=== PATIENT | male | born 1990 | race African-American/Black ===

== ENCOUNTER 2018-04-05 14:29 | Emergency (ER) | payer SELFPAY ==
[~2018-04-05] VITALS: Ht 188 cm; Wt 111.4 kg
[~2018-04-05 14:29] MED LIST: AMOXICILLIN 50500 MG PO; AMOXICILLIN 8751 TAB PO; CORTISPORIN OTI10 ML OT; FIORICET 325 MG1 TA1; FLEXERIL 1010 MG/TAB PO; LORTAB 5/500 501 TAB PO; NAPROSYN500 MG PO; NO HOME MEDICATIONS; NORCO 325 MG-51 TAB PO; NORCO 325 MG-7.1 TAB PO
[2018-04-05 14:33] VITALS: BP 141/101; TEMP 99.5
[2018-04-05 15:13] LABS: COLLECTION METHOD CLEAN CATCH
[2018-04-05 15:21] LABS: PH 7 (5-8); SQUAMOUS EPITHELIAL 0-2 /hpf; URINE APPEARANCE Clear; URINE BACTERIA None Seen /hpf; URINE BILIRUBIN Negative (NEGATIVE); URINE BLOOD Negative (NEGATIVE); URINE COLOR Yellow; URINE GLUCOSE Negative (NEGATIVE); URINE KETONE Negative (NEGATIVE); URINE LEUKOCYTE ESTERASE Negative (NEGATIVE); URINE NITRATE Negative (NEGATIVE); URINE PROTEIN(semi-quant) Negative (NEGATIVE); URINE RBC 0-2 /hpf; URINE UROBILINOGEN Negative (NEGATIVE)
[2018-04-05 16:10] VITALS: PULSE 60
== END 2018-04-05 16:10 | disposition home or self-care (01) ==
LOC: COL.ER 14:29
PROVIDERS: Emergency Medicine
DX: Z11.3 Encounter for screening for infections with a predominantly sexual mode of transmission (principal); F17.210 Nicotine dependence, cigarettes, uncomplicated
CPT/HCPCS: J0696

== ENCOUNTER 2018-12-27 01:53 | Emergency (ER) | payer SELFPAY ==
[~2018-12-27] VITALS: Ht 188 cm; Wt 115.9 kg
[2018-12-27 02:01] VITALS: BP 137/96; PULSE 80; TEMP 99.2
== END 2018-12-27 02:35 | disposition home or self-care (01) ==
LOC: COL.ER 01:53
DX: S60.221A Contusion of right hand, initial encounter (principal); F17.210 Nicotine dependence, cigarettes, uncomplicated; F12.10 Cannabis abuse, uncomplicated; W46.1XXA Contact with contaminated hypodermic needle, initial encounter

== ENCOUNTER 2021-04-11 17:41 | Emergency (ER) | payer SELFPAY ==
[~2021-04-11] VITALS: Ht 188 cm; Wt 110.0 kg
[2021-04-11] MEDS ORDERED: PEN-VEE K500 MG PO (19:17)
[2021-04-11 19:45] VITALS: BP 138/80; PULSE 87; TEMP 98.1
== END 2021-04-11 19:45 | disposition home or self-care (01) ==
LOC: COL.ER 17:41
DX: K03.81 Cracked tooth (principal); F17.210 Nicotine dependence, cigarettes, uncomplicated

== ENCOUNTER 2022-07-21 09:29 | Emergency (ER) | payer SELFPAY ==
[~2022-07-21] VITALS: Ht 188 cm; Wt 118.2 kg
[~2022-07-21 09:29] MED LIST changes: +PEN-VEE K500 MG PO
[2022-07-21 09:39] VITALS: TEMP 98.7
[2022-07-21] MEDS ORDERED: ZITHROMAX Z PA250 MG PO (10:14)
[2022-07-21] MEDS ORDERED: AMOXICILLIN 8751 TAB PO (10:14)
[2022-07-21 10:18] VITALS: BP 133/88; PULSE 76
== END 2022-07-21 10:24 | disposition home or self-care (01) ==
LOC: COL.ER 09:29
DX: J18.9 Pneumonia, unspecified organism (principal); F17.210 Nicotine dependence, cigarettes, uncomplicated; Z20.822 Contact with and (suspected) exposure to COVID-19; Z28.310 Unvaccinated for COVID-19

== ENCOUNTER 2023-03-26 10:14 | Emergency (ER) | payer SELFPAY ==
[~2023-03-26] VITALS: Ht 188 cm; Wt 118.2 kg
[~2023-03-26 10:14] MED LIST changes: +ZITHROMAX Z PA250 MG PO
[2023-03-26 10:21] VITALS: TEMP 99
[2023-03-26 12:40] VITALS: BP 139/91; PULSE 68
== END 2023-03-26 12:40 | disposition home or self-care (01) ==
LOC: COL.ER 10:14
PROVIDERS: Emergency Medicine
DX: Z77.098 Contact with and (suspected) exposure to other hazardous, chiefly nonmedicinal, chemicals (principal); R51.9 Headache, unspecified; R06.02 Shortness of breath; F17.210 Nicotine dependence, cigarettes, uncomplicated; Z28.310 Unvaccinated for COVID-19

== ENCOUNTER 2024-05-05 02:28 | Emergency (ER) | payer SELFPAY ==
[~2024-05-05] VITALS: Ht 182.9 cm; Wt 130.0 kg
[2024-05-05 02:34] VITALS: TEMP 98.8
[2024-05-05] MEDS ORDERED: Ondansetron 4 MG/2 ML VIAL IV ONE (02:45)
[2024-05-05] MEDS ORDERED: LR 1,000 ML IV ONE (02:45)
[2024-05-05 03:07] LABS: BASO % 0.8 % (0.0-2.0); EOS # 0.2 K/mm3 (0.0-0.7); EOS % 3.2 % (0.0-4.0); GRAN # 2.6 K/mm3 (1.4-6.5); GRAN % 49.3 % (42.2-75.2); HEMOGLOBIN 12.9 g/dl (13.5-18.0); LYMPH # 2.1 K/mm3 (1.2-3.4); LYMPH % 39.1 % (20.0-51.0); MEAN CELL VOLUME 82 fl (80.0-100.0); MEAN CORPUSCULAR HEMOGLOBIN 27 pg (27-31); MEAN CORPUSCULAR HGB CONC 33 g/dl (33.0-37.0); MEAN PLATELET VOLUME 10.1 fl (7.4-10.4); MONO # 0.4 K/mm3 (0.1-0.6); MONO % 7.4 % (1.7-9.3); PLATELET COUNT 301 K/mm3 (130-400); RED BLOOD COUNT 4.74 M/mm3 (4.20-5.60); REDCELL DISTRIBUTION WIDTH-CV 14.5 % (11.5-14.5)
[2024-05-05 03:29] LABS: ALBUMIN 3.8 g/dL (3.5-5.0); BILIRUBIN,TOTAL 0.4 mg/dL (0.2-1.2); CALCIUM 9.1 mg/dL (8.4-10.2); CREATININE, serum 1.2 mg/dL (0.72-1.25); POTASSIUM 3.3 mEq/L (3.5-4.5); TOTAL PROTEIN 6.7 g/dl (6.2-8.1)
[2024-05-05 04:10] VITALS: BP 157/90; PULSE 71
== END 2024-05-05 04:21 | disposition home or self-care (01) ==
LOC: COL.ER 02:28
PROVIDERS: Family Medicine
DX: T40.2X1A Poisoning by other opioids, accidental (unintentional), initial encounter (principal); F17.210 Nicotine dependence, cigarettes, uncomplicated
CPT/HCPCS: J2405; J7120